=== PATIENT | male | born 1940 | race Caucasian/White ===

== ENCOUNTER 2020-05-12 14:17 | Outpatient (RCR) | payer OTHER, SELFPAY | END 2020-08-27 12:19 | disposition home or self-care (01) | LOC: HO.WCC 14:17 | PROVIDERS: PCP Family Medicine; Visit Provider Physician Assistant | DX: I87.312 Chronic venous hypertension (idiopathic) with ulcer of left lower extremity (principal); L97.322 Non-pressure chronic ulcer of left ankle with fat layer exposed; G70.01 Myasthenia gravis with (acute) exacerbation; I87.2 Venous insufficiency (chronic) (peripheral); I73.9 Peripheral vascular disease, unspecified; I10 Essential (primary) hypertension; Z72.89 Other problems related to lifestyle; Z87.891 Personal history of nicotine dependence | CPT/HCPCS: 11042; 97597; 97602; 99211; 99212; 99213 ==

== ENCOUNTER 2020-05-26 10:25 | Outpatient (REF) | payer OTHER, SELFPAY ==
--- NOTE | ~2020-05-26 | US_ITS ---
EXAMINATION: US VENOUS ULTRASOUND WITH DOPPLER LOWER EXTREMITY, LEFT CLINICAL INFORMATION: EXAMINATION: LEFT LOWER EXTREMITY VENOUS ULTRASOUND (Reflux Exam) CLINICAL INDICATION: Venous insufficiency. Chronic ulcer of the left ankle. COMPARISON: None. TECHNIQUE: Color flow triplex imaging and compression Doppler was performed to evaluate both the deep and the superficial systems on the left. To evaluate the superficial system, the examination was performed in the upright position. Color-flow Doppler ultrasound and compression ultrasound were utilized. In addition, maneuvers were utilized to demonstrate reflux. FINDINGS: DEEP VENOUS ULTRASOUND OF THE LEFT LOWER EXTREMITY: Respiratory variation, normal compression and augmented flow are noted in the left common femoral vein as well as the left popliteal vein and there is no evidence of deep venous thrombosis at these locations. There is no evidence of reflux in the deep system in either the common femoral vein or the popliteal vein. . There is no evidence of a Summers's cyst. SUPERFICIAL ULTRASOUND WITH DOPPLER OF LEFT LOWER EXTREMITY: Left great saphenous vein at the saphenofemoral junction measures 7 mm, at the mid thigh 3 mm, [id number] 3 mm, [id number] 3 mm, at mid calf 3 mm and at the ankle measures 4 mm. There is no reflux demonstrated in the left great saphenous vein. The left small saphenous vein measures 2-3 mm and shows no reflux. There are perforators in the proximal and mid thigh distal calf that measure 2 and 3 mm and do not demonstrate reflux. US/US venous duplex LE LT IMPRESSION: 1. No evidence of left deep venous reflux or DVT. 2. No evidence of left saphenous vein reflux.
== END 2020-05-26 10:26 | disposition home or self-care (01) ==
LOC: HO.US 10:25
PROVIDERS: Visit Provider Physician Assistant
DX: I87.2 Venous insufficiency (chronic) (peripheral) (principal); L97.322 Non-pressure chronic ulcer of left ankle with fat layer exposed
CPT/HCPCS: 93971

== ENCOUNTER 2020-06-02 14:11 | Outpatient (REF) | payer OTHER, SELFPAY ==
--- NOTE | ~2020-06-02 | MR_ITS ---
EXAMINATION: MR ANKLE WITHOUT AND WITH CONTRAST, LEFT CLINICAL INFORMATION: Nonhealing wound of left ankle. Osteomyelitis. COMPARISON: None TECHNIQUE: MRI of the ankle was performed before and after the intravenous administration of 10 mL gadolinium on a high-field scanner. FINDINGS: ACHILLES TENDON: Achilles tendon is thickened (9 mm) at its midsubstance, centered 5 cm from the insertion. There is surrounding peritendinitis. No tears. OTHER TENDONS: Small volume of tenosynovial fluid at the medial flexor tendons is within normal limits. No tears or tendinosis. Extensor and peroneal tendons are unremarkable. LIGAMENTS: Intact. 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 Talocrural, midfoot, and hindfoot joints are otherwise unremarkable. No evidence of osteomyelitis. JOINT FLUID AND SOFT TISSUES: No joint effusion. There is subcutaneous edema and soft tissue swelling at the ankle, more pronounced laterally. There is associated skin thickening in this region as well as a 1.7 x 0.9 cm skin defect at the level of the distal fibular metadiaphysis. No underlying fluid collections or abscesses are identified. PLANTAR FASCIA: Normal. SINUS TARSI AND TARSAL TUNNEL: Normal. MR/MR ankle LT wo/w con IMPRESSION: A focal skin ulceration at the lateral aspect of the ankle with MR findings of surrounding cellulitis. No underlying abscess or osteomyelitis. Mild Achilles tendinosis. 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
[2020-06-02 14:56] LABS: Anion Gap 12 (12-20); Blood Urea Nitrogen 18 mg/dL (9-16); Carbon Dioxide 26 mmol/L (22-29); Chloride 101 mmol/L (96-108); Estimated Glomerular Filt Rate > 60; Glucose Random 99 mg/dL (60-115); Potassium 4.7 mmol/L (3.3-5.1); Sodium 134 mmol/L (135-145)
== END 2020-06-02 14:12 | disposition home or self-care (01) ==
LOC: HO.MRI 14:11
PROVIDERS: Visit Provider Physician Assistant
DX: L97.322 Non-pressure chronic ulcer of left ankle with fat layer exposed (principal); M86.272 Subacute osteomyelitis, left ankle and foot
CPT/HCPCS: 36415; 73723; 80048; A9585

== ENCOUNTER 2020-06-30 08:31 | Outpatient (REF) | payer OTHER, SELFPAY ==
--- NOTE | ~2020-06-30 | US_ITS ---
EXAMINATION: Left LOWER EXTREMITY DUPLEX CLINICAL INFORMATION: Nonhealing wound left leg TECHNIQUE: Duplex Doppler techniques with wave form analysis and measurement of velocities in the left common femoral, profunda femoral, superficial femoral, popliteal and tibial arteries. The study was performed only at rest. COMPARISON: None FINDINGS: a) AT REST: Left direct duplex Doppler findings: There is evidence of mild atherosclerotic disease with vessel wall calcification. There is a collateral vessel arising from the distal superficial femoral artery. No visible stenosis is seen. * Common femoral artery: 83 cm/s, Diastolic flow reversal: Yes * Superficial femoral artery (proximal, mid, distal): 118, 84 and 66 cm/s, Diastolic flow reversal: Yes * Popliteal artery: 57 cm/s, Diastolic flow reversal: Yes * Posterior tibial artery: 83 cm/s, Diastolic flow reversal: Yes US/US arterial duplex LE LT IMPRESSION: There is no evidence of any hemodynamically significant left lower extremity arterial disease by duplex Doppler criteria at rest. There is a collateral vessel that arises from the distal superficial femoral artery.
== END 2020-06-30 08:32 | disposition home or self-care (01) ==
LOC: HO.US 08:31
PROVIDERS: Visit Provider Physician Assistant
DX: I73.9 Peripheral vascular disease, unspecified (principal); L97.322 Non-pressure chronic ulcer of left ankle with fat layer exposed
CPT/HCPCS: 93926

== ENCOUNTER 2021-05-13 08:14 | Outpatient (RCR) | payer MEDICARE, SELFPAY | END 2021-08-07 15:19 | disposition home or self-care (01) | LOC: HO.WCC 08:14 | PROVIDERS: PCP Family Medicine; Visit Provider Surgery | DX: S81.811A Laceration without foreign body, right lower leg, initial encounter (principal); G70.00 Myasthenia gravis without (acute) exacerbation | CPT/HCPCS: 11042; 11045; 15271; 99212; 99214; 99215; Q4187 ==

== ENCOUNTER 2021-12-31 12:45 | Outpatient (RCR) | payer MEDICARE, SELFPAY | END 2022-02-26 10:04 | disposition home or self-care (01) | LOC: HO.WCC 12:45 | PROVIDERS: PCP Family Medicine; Visit Provider Physician Assistant | DX: L97.222 Non-pressure chronic ulcer of left calf with fat layer exposed (principal); S51.812A Laceration without foreign body of left forearm, initial encounter; S51.811A Laceration without foreign body of right forearm, initial encounter; I87.331 Chronic venous hypertension (idiopathic) with ulcer and inflammation of right lower extremity; L97.812 Non-pressure chronic ulcer of other part of right lower leg with fat layer exposed; E46 Unspecified protein-calorie malnutrition; G70.00 Myasthenia gravis without (acute) exacerbation; Z87.891 Personal history of nicotine dependence; Z79.2 Long term (current) use of antibiotics | CPT/HCPCS: 11042; 11045; 97597; 97602; 99213; 99214 ==

== ENCOUNTER 2022-01-15 14:40 | Outpatient (REF) | payer OTHER, SELFPAY ==
--- NOTE | ~2022-01-15 | US_ITS ---
EXAMINATION: US VENOUS ULTRASOUND WITH DOPPLER LOWER EXTREMITY, LEFT CLINICAL INFORMATION: Left leg pain with swelling and redness. Rule out DVT. COMPARISON: None TECHNIQUE: Ultrasound of the deep veins is performed from the hip to the calf with compression sonography and color and pulse Doppler assessment. Spectral analysis with color-flow imaging is performed. FINDINGS: There is normal venous compression and respiratory variation and augmented flow. The visualized common femoral vein, superficial femoral vein, profunda femoral vein, popliteal vein, and the trifurcation region shows no evidence of deep venous thrombosis. If the patient's symptoms persist, followup ultrasound in 5 days 7 days might be of value to exclude proximal propagation from a non-visualized calf vein. US/US venous duplex LE LT IMPRESSION: No DVT demonstrated in the left lower extremity.
== END 2022-01-15 14:41 | disposition home or self-care (01) ==
LOC: HO.US 14:40
PROVIDERS: PCP Family Medicine; Visit Provider Physician Assistant
DX: M79.662 Pain in left lower leg (principal); M79.89 Other specified soft tissue disorders
CPT/HCPCS: 93971

== ENCOUNTER 2022-03-12 10:43 | Outpatient (RCR) | payer OTHER, SELFPAY | END 2022-11-19 10:35 | disposition home or self-care (01) | LOC: HO.WCC 10:43 | PROVIDERS: PCP Family Medicine; Visit Provider Physician Assistant | DX: L97.812 Non-pressure chronic ulcer of other part of right lower leg with fat layer exposed (principal); G70.00 Myasthenia gravis without (acute) exacerbation; I87.2 Venous insufficiency (chronic) (peripheral); L88 Pyoderma gangrenosum; Z79.899 Other long term (current) drug therapy | CPT/HCPCS: 11042; 11045; 15271; 15272; 97597; 97598; 97602; 99212; 99213; 99214; 99215; Q4101; Q4187 ==

== ENCOUNTER 2023-09-08 09:38 | Outpatient (RCR) | payer MEDICARE, SELFPAY | END 2024-04-19 15:26 | disposition hospice, home (50) | LOC: HO.WCC 09:38 | PROVIDERS: PCP Family Medicine; Visit Provider Surgery | DX: L97.822 Non-pressure chronic ulcer of other part of left lower leg with fat layer exposed (principal); S51.012A Laceration without foreign body of left elbow, initial encounter; I87.2 Venous insufficiency (chronic) (peripheral); G70.00 Myasthenia gravis without (acute) exacerbation; X58.XXXA Exposure to other specified factors, initial encounter; Y93.9 Activity, unspecified; Y92.9 Unspecified place or not applicable; Y99.9 Unspecified external cause status; Z79.52 Long term (current) use of systemic steroids; Z79.899 Other long term (current) drug therapy; Z79.891 Long term (current) use of opiate analgesic | CPT/HCPCS: 11042; 97597; 99212; 99213 ==

== ENCOUNTER 2023-10-20 14:55 | Outpatient (REF) | payer MEDICARE, SELFPAY ==
--- NOTE | ~2023-10-20 | US_ITS ---
EXAMINATION: US VENOUS ULTRASOUND WITH DOPPLER LOWER EXTREMITY, LEFT CLINICAL INFORMATION: Pain, redness, swelling COMPARISON: 01/15/2022 TECHNIQUE: Ultrasound of the deep veins is performed from the hip to the calf with compression sonography and color and pulse Doppler assessment. Spectral analysis with color-flow imaging is performed. FINDINGS: The common femoral vein is compressible and exhibits a normal phasic waveform; this suggests that the iliac veins are widely patent above. Within the proximal thigh, the visualized profunda femoris vein is normal. The examined greater saphenous vein and saphenofemoral junction are normal. Superficial femoral vein is patent in the proximal, mid and distal thigh. Popliteal vein is normal to the level of the trifurcation. On compression dewey scale and color Doppler images, the posterior tibial vein is normal. There is edema of subcutaneous tissues of the calf. Unable to adequately visualize the peroneal vein for diagnostic assessment. No evidence of Summers's cyst. US/US venous duplex LE IMPRESSION: * There is edema of subcutaneous tissues of the calf. * No evidence of deep vein thrombosis in the left lower extremity. * Although no venous thrombosis is detected, the peroneal vein of the calf is difficult to visualize and a repeat Doppler ultrasound may be considered in 5-7 days if there is any ongoing clinical suspicion.
== END 2023-10-20 14:56 | disposition home or self-care (01) ==
LOC: HO.US 14:55
PROVIDERS: PCP Family Medicine; Visit Provider Surgery
DX: M79.662 Pain in left lower leg (principal)
CPT/HCPCS: 93971